=== PATIENT | female | born 1980 | race Hispanic/Latino ===

== ENCOUNTER 2019-11-23 16:42 | Emergency (ER) | payer OTHER ==
[2019-11-23 17:19] LABS: APPEARANCE,URINE CLOUDY (CLEAR); BILIRUBIN,URINE NEGATIVE (NEGATIVE); COLOR,URINE YELLOW (YELLOW); GLUCOSE, URINE (UA) NEGATIVE (NEGATIVE); KETONES,URINE NEGATIVE (NEGATIVE); LEUKOCYTE ESTERASE ,URINE LARGE (NEGATIVE); NITRATE,URINE NEGATIVE (NEGATIVE); OCCULT BLOOD,URINE TRACE-INTACT (NEGATIVE); PH,URINE 8.5 (5.0-8.0); PROTEIN,URINE 30 mg/dL (NEGATIVE)
[2019-11-23 17:25] LABS: HCG,QUAL RESULT NEGATIVE (NEGATIVE)
[2019-11-23] MEDS ORDERED: CEFTRIAXONE SODIUM 500 MG VIAL ONE (17:46)
[2019-11-23] MEDS ORDERED: LIDOCAINE HCL-MPF 1% 2ML VIAL ONE (17:46)
[2019-11-23] MEDS ORDERED: AZITHROMYCIN 250 MG TABLET PO ONE (17:46)
[2019-11-23] MEDS ORDERED: ONDANSETRON ODT 4 MG TAB ONE (17:47)
[2019-11-23 17:51] LABS: BACTERIA,URINE Few /HPF (None Seen); SQUAMOUS EPITHELIAL CELL,UR Rare /HPF (0-2); WBC,URINE 26-50 /HPF (0-1)
== END 2019-11-23 19:46 | disposition home or self-care (01) ==
LOC: EDH 16:42
DX: A59.01 Trichomonal vulvovaginitis (principal)
CPT/HCPCS: 81001; 81025; 87210; 87486; 87797; 96372; 99284; J0696; J3490